=== PATIENT | female | born 1955 | race Caucasian/White ===

== ENCOUNTER 2023-02-02 12:08 | Outpatient (RCR) | payer MEDICARE, OTHER ==
[~2023-02-02] VITALS: Ht 165.1 cm; Wt 77.5 kg
[2023-02-02] MEDS ORDERED: FERRIC CARBOXYMALTOSE INJ 750 MG in NS (IVPB) 250 ML IV SCH (12:45)
[2023-02-02 13:11] VITALS: BP 137/98
== END 2023-02-05 | disposition home or self-care (01) ==
LOC: SDC 12:08
PROVIDERS: ATTEND Internal Medicine Nephrology
DX: D50.9 Iron deficiency anemia, unspecified (principal)
CPT/HCPCS: 96365

== ENCOUNTER 2023-02-09 11:30 | Outpatient (RCR) | payer MEDICARE, OTHER ==
[2023-02-09] MEDS ORDERED: FERRIC CARBOXYMALTOSE INJ 750 MG in NS (IVPB) 250 ML IV SCH (11:45)
[2023-02-09 11:59] VITALS: BP 149/68
== END 2023-03-08 | disposition home or self-care (01) ==
LOC: SDC 11:30
PROVIDERS: ATTEND Internal Medicine Nephrology
DX: D50.9 Iron deficiency anemia, unspecified (principal)
CPT/HCPCS: 96365